=== PATIENT | female | born 1960 | race Caucasian/White ===

== ENCOUNTER 2021-10-15 13:02 | Emergency (ER) | payer MEDICARE, SELFPAY ==
[2021-10-15 13:03] VITALS: BP 146/77; PULSE 112; RESP 18; TEMP 35.4; O2SAT 98; BMI 25.0
[2021-10-15] MEDS: hydrOXYzine PAM 25 MG Capsule PO (14:18)
[2021-10-15 15:24] LABS: Mucous, Urine 0 SEEN /hpf (<or=2+); Red Blood Cells-Urine 0 SEEN /hpf (0-5)
[2021-10-15 15:25] LABS: Color, Urine Yellow (Yellow); Glucose, Dipstick Normal (Normal); Ketone-Dipstick Negative (Negative); Leukocyte Esterase-Dipstick 25 /ul (Negative); Nitrite-Dipstick Negative (Negative); Occult Blood-Urine Negative /ul (Negative); Protein-Dipstick 30 mg/dl (Negative); Urine Bilirubin Dipstick Negative (Negative); Urine Clarity Clear (Clear); Urine Urobilinogen Normal (Normal)
[2021-10-15 15:45] LABS: Bacteria RARE /hpf (None Seen); Squamous Epithelial Cells - UA 0-5 SEEN /hpf (5-10); White Blood Cells 0-5 SEEN /hpf (0-5)
--- NOTE | 2021-10-15 16:11 | EDS_ITS ---
HPI HPI - Psych History of Present Illness Chief Complaint: Mental Health Informant: patient Onset/Context/Timing Onset: Weeks (2) Context: Gradual Onset Timing: Continuous Worsened by: Situational factors Relieved by: Nothing Associated Symptoms Associated Symptoms - Psych: Positive for Increased activity; Negative for Suicidal Thoughts, Visual Hallucinations or Auditory Hallucinations Narrative Narrative: Patient presents with increasing anxiety that has been getting worse over the last 2 weeks. Patient states she has an appoint with a psychiatrist but it is not until the end of November. Patient states her anxiety has been getting worse because she is living in a senior living for [facility] violence. Patient states she is supposed to leave the senior living in a couple weeks but does not have a place to go. Patient is on BuSpar and trazodone for her anxiety. Patient denies any suicidal homicidal ideations. [facility] Medical History (Updated 10/15/21 @ 16:[address] Fletcher Alaniz DO) Anxiety Back pain Carpal tunnel syndrome HTN (hypertension) Home Medications buspirone 15 mg tablet 15 mg PO BID 10/15/21 [History Last Taken Unknown] metformin 1,000 mg tablet 1,000 mg PO BID 10/15/21 [History Last Taken Unknown] pregabalin 200 mg capsule 200 mg PO TID 10/15/21 [History Last Taken Unknown] trazodone 50 mg tablet 50 mg PO QHS 10/15/21 [History Last Taken Unknown] Allergy/AdvReac Type Severity Reaction Status Date / Time naproxen [From Naprosyn] AdvReac Other Verified 10/15/21 13:08 Surgical History H/O lumpectomy Hx of appendectomy Knee joint replacement status Social History Smoking Status: Current every day smoker tobacco type: cigarettes ROS ROS ED Constitutional Constitutional ED: Denies chills or fever(s) Eyes Eyes: Denies blurry vision or change in vision ENT ENT ED: Denies rhinorrhea or sore throat Cardiovascular Cardiovascular: Denies chest pain or palpitations Respiratory/Chest Respiratory/Chest: Denies cough or dyspnea Gastrointestinal Gastrointestinal: Denies nausea or vomiting Genitourinary Genitourinary ED: Denies dysuria or hematuria Musculoskeletal Musculoskeletal: Denies back pain or neck pain Integumentary Denies abscess or rash Neurologic Neurologic: Reports headache(s); Denies weakness Psychiatric Psychiatric: Reports anxiety; Denies depression, suicidal ideation or suicidal thoughts Allergic/Immunologic Allergic/Immunologic ED: Denies mouth swelling or urticaria EXAM Physical Exam Const Vital Signs: 10/15/21 13:03 Temperature 95.8 F L Temperature Source Temporal Pulse Rate 112 H Respiratory Rate 18 Blood Pressure 146/77 H Blood Pressure Mean 100 Pulse Ox 98 Oxygen Delivery Method Room Air Positive well nourished and well developed General Appearance ED: well developed and NAD HEENT Reports moist mucous membranes Neck supple and no JVD Resp normal respiratory effort and clear to auscultation bilaterally Cardio regular rate, regular rhythm and no murmurs GI normal to inspection, nondistended, normoactive bowel sounds and non-tender Palpation: soft Extremity normal to inspection General Extremety ED: Negative for edema or tenderness General Extremity: Negative for edema Neuro oriented x3, CN's II-XII intact bilaterally and no sensory deficits noted Sensorium / Orientation: alert Motor Exam: strength 5/5 throughout Psych mental status grossly normal Activity / Motor Behavior: appropriate eye contact and fidgetting Speech: rapid Mood & Affect: anxious Skin no rashes or lesions noted MDM MDM MDM Narrative Medical decision making narrative: Patient was given a dose of hydroxyzine here. Urinalysis does not show any evidence of urinary tract infection or hematuria. Patient was advised of her findings. Patient is feeling better on reevaluation. Patient was instructed to follow-up with her psychiatrist in 5 to 7 days. Patient was also given referral to the counseling center. Patient understood and was agreeable with the plan. All questions were answered. Lab Data Labs: Laboratory Results - last 24 hr 10/15/21 15:10 Urine Color Yellow Urine Clarity Clear Urine pH 6.0 Ur Specific Mather 1.020 Urine Protein 30 H Urine Glucose (UA) Normal Urine Ketones Negative Urine Occult Blood Negative Urine Nitrite Negative Urine Bilirubin Negative Urine Urobilinogen Normal Ur Leukocyte Esterase 25 H Urine RBC 0 SEEN Urine WBC 0-5 SEEN Ur Squamous Epith Cells 0-5 SEEN Urine Bacteria RARE Urine Mucus 0 SEEN Discharge Plan Triage Chief Complaint: Mental Health ED Provider: Fletcher Alaniz Dx/Rx/DC Orders Clinical Impression: Anxiety, Dysuria Instructions: ED Anxiety Reaction Prescriptions: No Action trazodone 50 mg tablet 50 mg PO QHS Label Comments: take 1 tablet by mouth once daily at bedtime if needed for sleep metformin 1,000 mg Tablet 1,000 mg PO BID buspirone 15 mg tablet 15 mg PO BID Label Comments: take 1 tablet by mouth twice a day pregabalin 200 mg capsule 200 mg PO TID Label Comments: take 1 capsule by mouth three times a day Primary Care Provider: Delgado Brandt Referrals: Counseling,Center [Group of Physicians] - 3-5 Days Delgado Brandt MD [Primary Care Provider] - 5-7 Days Disposition Disposition: Home, Self Care
[2021-10-15 16:18] VITALS: BP 110/55; RESP 16
== END 2021-10-15 16:23 | disposition home or self-care (01) ==
PROVIDERS: Emergency Provider Emergency Medicine; PCP Family Medicine; Visit Provider Emergency Medicine
DX: F41.9 Anxiety disorder, unspecified (principal); R30.0 Dysuria; I10 Essential (primary) hypertension; F17.210 Nicotine dependence, cigarettes, uncomplicated; Z59.01 Sheltered homelessness; Z79.899 Other long term (current) drug therapy
CPT/HCPCS: 81001; 99282

== ENCOUNTER 2021-10-18 17:21 | Emergency (ER) | payer SELFPAY ==
[2021-10-18 17:23] VITALS: BP 170/96; PULSE 102; RESP 18; TEMP 36.2; O2SAT 98; BMI 25.0
--- NOTE | 2021-10-18 19:51 | EDS_ITS ---
HPI History of Present Illness Chief Complaint: GI Bleed Narrative Narrative: 61-year-old female here with concern for GI bleed. Patient not on blood thinners. She has a history of dysuria and anxiety. She states she had a minor injury to her buttocks as she was getting to a car 3 days ago and since then has noted bright red blood per rectum on 2 occasions. Denies any other bleeding diathesis. States she does have some pain over her lower back that is 2/10, nonradiating and constant worse with sitting. Denies any history of GI bleeding. Old chart reviewed: Baseline hemoglobin 14.6, in [facility] Medical History (Updated 10/18/21 @ 22:[address] Siddhartha Denis, DO) Anxiety Back pain Carpal tunnel syndrome HTN (hypertension) Home Medications metformin 1,000 mg tablet 1,000 mg PO BID 10/15/21 [History Last Taken Unknown] pregabalin 200 mg capsule 200 mg PO TID 10/15/21 [History Last Taken Unknown] trazodone 50 mg tablet 50 mg PO QHS 10/15/21 [History Last Taken Unknown] acamprosate 333 mg tablet,delayed release 666 mg PO TID 10/18/21 [History Last Taken Unknown] citalopram 20 mg tablet 20 mg PO DAILY 10/18/21 [History Last Taken Unknown] ezetimibe 10 mg tablet 10 mg PO DAILY 10/18/21 [History Last Taken Unknown] fenofibrate 145 mg PO/SL DAILY 10/18/21 [History Last Taken Unknown] folic acid 1 mg tablet 1 mg PO DAILY 10/18/21 [History Last Taken Unknown] hydroxyzine HCl 25 mg tablet 25 mg PO Q6H PRN PRN Sleep 10/18/21 [History Last Taken Unknown] insulin aspart U-100 8 u OTHER TID 10/18/21 [History Last Taken Unknown] insulin glargine 20 u OTHER QHS 10/18/21 [History Last Taken Unknown] lisinopril 5 mg tablet 5 mg PO DAILY 10/18/21 [History Last Taken Unknown] sucralfate 1 gram tablet 1 g PO Q6H 10/18/21 [History Last Taken Unknown] Allergy/AdvReac Type Severity Reaction Status Date / Time naproxen [From Naprosyn] AdvReac Other Verified 10/18/21 17:22 Surgical History H/O lumpectomy Hx of appendectomy Knee joint replacement status Social History Smoking Status: Current every day smoker tobacco type: cigarettes ROS ROS ED Eyes Eyes: Denies other visual disturbances ENT ENT ED: Denies ear pain Cardiovascular Cardiovascular: Denies chest pain Respiratory/Chest Respiratory/Chest: Denies dyspnea Gastrointestinal Gastrointestinal: Reports rectal bleeding Genitourinary Genitourinary ED: Denies dysuria Musculoskeletal Musculoskeletal: Denies joint pain Integumentary Denies rash Neurologic Neurologic: Denies dizziness, focal weakness, numbness, syncope or weakness Psychiatric Psychiatric: Denies homicidal ideation or suicidal ideation EXAM Physical Exam Const Vital Signs: 10/18/21 17:23 10/18/21 21:08 Temperature 97.1 F L Temperature Source Temporal Pulse Rate 102 H 75 Respiratory Rate 18 16 Blood Pressure 170/96 H 149/91 H Blood Pressure Mean 120 110 Pulse Ox 98 99 Oxygen Delivery Method Room Air Room Air Negative for alert or oriented x3 General Appearance ED: Negative for comfortable Orientation / Consciousness: Negative for awake HEENT Denies normocephalic Face and Sinus: Negative for face symmetric External Ear: Negative for external ears normal Mouth ED: No moist mucous membranes normal Throat: Negative for posterior oropharynx normal Eyes Negative for PERRL or EOMs intact bilaterally Neck No full ROM Carotids: other Other Details: no carotid bruits Chest Wall Negative for inspection of chest normal Resp No normal respiratory effort, No no retractions, No no use of accessory muscles and No clear to auscultation bilaterally Cardio Negative for no murmurs or peripheral pulses 2+ throughout GI GI Narrative: No obvious rectal lacerations or abrasions, good rectal tone, no obvious hemorrhoids, abrasion noted to the gluteal cleft just over the coccyx Negative for no CVA tenderness Back/Spine Cervical Spine: Negative for cervical ROM normal Extremity Negative for normal to inspection or full ROM MDM MDM MDM Narrative Medical decision making narrative: 61-year-old female here with concern for rectal bleeding. Exam without obvious rectal trauma, no obvious hemorrhoids. Obtained a CBC to rule out significant anemia. Obtained a Hemoccult test to rule out occult bleeding. Labs were remarkable for no significant anemia. Hemoccult negative. Unclear etiology. Patient was encouraged to follow-up with gastroenterology. Lab Data Labs: Laboratory Results - last 24 hr 10/18/21 10/18/21 20:35 20:41 WBC 6.4 RBC 4.60 Hgb 13.7 Hct 40.7 MCV 88.5 MCH 29.8 MCHC 33.7 RDW Std Deviation 36.7 RDW Coeff of Ary 11.3 L Plt Count 265 MPV 9.3 POC Glucose 116 H Discharge Plan Triage Chief Complaint: GI Bleed ED Provider: Siddhartha Denis Dx/Rx/DC Orders Clinical Impression: Bright red rectal bleeding Instructions: ED Lower GI Bleeding (Stable) Prescriptions: No Action trazodone 50 mg tablet 50 mg PO QHS Label Comments: take 1 tablet by mouth once daily at bedtime if needed for sleep metformin 1,000 mg Tablet 1,000 mg PO BID pregabalin 200 mg capsule 200 mg PO TID Label Comments: take 1 capsule by mouth three times a day sucralfate 1 gram tablet 1 g PO Q6H Label Comments: take 1 tablet by mouth four times a day citalopram 20 mg tablet 20 mg PO DAILY Label Comments: take 1 tablet by mouth once daily folic acid 1 mg tablet 1 mg PO DAILY Label Comments: take 1 tablet by mouth once daily hydroxyzine HCl 25 mg tablet 25 mg PO Q6H PRN PRN (Reason: Sleep) Label Comments: take 1 tablet by mouth four times a day if needed for sleep or anxiety lisinopril 5 mg tablet 5 mg PO DAILY Label Comments: take 1 tablet by mouth once daily ezetimibe 10 mg tablet 10 mg PO DAILY Label Comments: take 1 tablet by mouth once daily acamprosate 333 mg tablet,delayed release (DR/EC) 666 mg PO TID Label Comments: TAKE 2 TABLETS BY MOUTH 3 TIMES DAILY fenofibrate 145 mg PO/SL DAILY insulin aspart U-100 8 u OTHER TID insulin glargine 20 u OTHER QHS Primary Care Provider: Delgado Brandt Referrals: Delgado Brandt MD [Primary Care Provider] - Shadi Butler DO [Med Staff - Active Staff] - Siddhartha Denis DO [Emergency Provider] - Disposition Disposition: Home, Self Care
[2021-10-18 20:42] LABS: Hematocrit 40.7 % (37-47); Hemoglobin 13.7 g/dL (12.0-15.0); Mean Corp Hgb Conc 33.7 g/dL (32-36); Mean Corpuscular Hgb 29.8 pg (27.0-32.0); Mean Corpuscular Volume 88.5 fL (81-99); Mean Platelet Vol. 9.3 fl (6.2-12.0); Platelet Count 265 K/mm3 (150-450); RBC Distribution Width CV 11.3 % (11.6-14.6); RBC Distribution Width SD 36.7 fl (35.1-43.9); White Blood Count 6.4 K/mm3 (4.4-11.0)
[2021-10-18 21:08] VITALS: BP 149/91; PULSE 75; RESP 16; O2SAT 99
[2021-10-18 21:11] LABS: Bedside Glucose 116 mg/dL (74-106)
[2021-10-18 22:32] VITALS: BP 135/77; PULSE 77; RESP 16; O2SAT 95
== END 2021-10-18 22:35 | disposition home or self-care (01) ==
PROVIDERS: Emergency Provider Emergency Medicine; PCP Family Medicine; Visit Provider Emergency Medicine
DX: K62.5 Hemorrhage of anus and rectum (principal); F41.9 Anxiety disorder, unspecified; F17.210 Nicotine dependence, cigarettes, uncomplicated; I10 Essential (primary) hypertension
CPT/HCPCS: 82274; 82962; 85027; 99282; A4216